=== PATIENT | female | born 1980 | race Caucasian/White ===

== ENCOUNTER → 2017-03-22 | Outpatient (REF) | payer BC ==
[~2017-03-22] MED LIST: AMOX-559 PO; AUG500 PO; BUTA1CAP4 PO; BUTA1CAP51 PO; CALC100C PO; CYC10 PO; DOCU50CA PO; FLUC150T40 PO; HYDR-385 PO; IBU600 PO; LIDO5CRE6 TP; LOR5 PO; MET10 PO; MULT-820 PO; ONDA4TAB PO; ONDA4TAB9 PO; OXYC-857 PO; OXYC-865 PO; PRED20TA6 PO; PREN-67 PO; PRO25 PO; PSEU-287 PO
[2017-03-22 19:11] LABS: PLATELET COUNT, AUTOMATED 234 K/uL (150-450)
== END ==
PROVIDERS: ATTEND Nurse Practitioner Family
DX: R10.9 Unspecified abdominal pain (principal)
CPT/HCPCS: 82040; 82247; 82310; 82374; 82435; 82565; 82947; 84075; 84132; 84155; 84295; 84450; 84460; 84520; 85025

== ENCOUNTER 2018-07-17 16:21 | Emergency (ER) | payer BC ==
[~2018-07-17 16:21] MED LIST changes: -PSEU-287 PO; +PSEU120T69 PO
--- NOTE | 2018-07-17 16:38 | ER Report ---
History and Physical Time Seen By MD: 16:38 Hx. of Stated Complaint: INSECT BITE HPI/ROS CHIEF COMPLAINT: Spider bite HISTORY OF PRESENT ILLNESS: This is a 38-year-old female presents to the emergency department for possible spider bite. Patient states that on Monday, she was different cells, she was in a barn, which did have spiders, they were moving wood she did have an open exposed area to the right knee area of her leggings. If the patient denies the sensation of a "bite". However yesterday she noticed there was a red spot on the right medial knee, progressively getting worse, she did follow up with urgent care this morning, they did prescribe her Keflex, now she states that the erythema has increased in size, she's taken 2 doses of the Keflex. She also states now she has myalgias, she feels nauseous, a burning severe pain to the wound. She also feels hot and flushed, no diaphoresis. She denies chest pain or shortness of breath. REVIEW OF SYSTEMS: Constitutional: As above. Eyes: No discharge. ENT: No sore throat. Cardiovascular: No chest pain, no palpitations. Respiratory: No cough, no shortness of breath. Gastrointestinal: As above. Genitourinary: No hematuria. Musculoskeletal: As above. Skin: No. Neurological: No headache. Allergies: Coded Allergies: ciprofloxacin (Verified Allergy, Severe, SKIN PEELS OFF, 07/17/18) tetracycline (Verified Allergy, Intermediate, HIVES, 07/17/18) Home Meds Active Scripts Ondansetron Hcl (ZOFRAN) 4 Mg Tablet, 4 MG PO Q4-6H PRN for prn, #20 TAB Prov:BOYD BUSBY [facility]- 07/17/18 Fluconazole (DIFLUCAN) 150 Mg Tablet, 150 MG PO QDAY, #2 TAB Take one tab today and may repeat in 48 hours if there is no improvement. Prov:BOYD BUSBY [facility]- 07/17/18 Cephalexin 500 Mg Tab (KEFLEX 500 MG TAB) 500 Mg Tablet, 500 MG PO Q6H, #7 TAB 0 Refills Prov:BOYD BUSBY [facility]- 07/17/18 Reported Medications Cephalexin (KEFLEX) 500 Mg Capsule, 500 MG PO Q8H, #28 CAP 07/17/18 Discontinued Scripts Hydrocodone Bit/Acetaminophen (HYDROCODON-ACETAMINOPHEN 5-325) 1 Each Tablet, 1- 2 EACH PO Q4H for PAIN, #25 TAB 0 Refills Prov:KYLE TORRES MD 12/01/16 Ondansetron 4 Mg Odt (ONDANSETRON 4 MG ODT) 4 Mg Tab.rapdis, 4 MG PO Q8H for Nausea, #16 TAB.CORTEZ 0 Refills Prov:KYLE TORRES MD 12/01/16 Past Medical/Surgical History The patient has a past medical and surgical history of bilateral hydronephrosis, frequent urinary tract infections, left arm fracture, back surgery 3, arm surgery 5. Left arm brown recluse bite. Reviewed Nurses Notes: Yes Hx Smoking: No Smoking Status: Never Smoker Constitutional Vital Sign - Last 24 Hours 07/17/18 07/17/18 07/17/18 16:27 16:30 17:00 Temp 99.2 Pulse 81 Resp 16 B/P (MAP) 121/83 139/79 (99) 113/77 (89) Pulse Ox 94 O2 Delivery Room Air Physical Exam General Appearance: The patient is alert, has no immediate need for airway protection and no signs of toxicity. Eyes: Pupils equal and round no pallor or injection. ENT, Mouth: Mucous membranes are moist. Respiratory: There are no retractions, lungs are clear to auscultation. Cardiovascular: Regular rate and rhythm. Gastrointestinal: Abdomen is soft and non tender, no masses, bowel sounds n ormal. Neurological: Alert and oriented 4. Moving all extremities. Following all commands. No focal neuro deficits. Skin: Erythema and cellulitis in a circular fashion to the right medial knee. Small scab noted which could be from a bite. It is hot to touch. There is no underlying induration, no fluctuance no obvious abscess, no bull's-eye, necrotic or pale tissue. Musculoskeletal: Neck is supple non tender. Extremities are nontender, nonswollen and have full range of motion. DIFFERENTIAL DIAGNOSIS: After history and physical exam differential diagnosis was considered for inflammation, cellulitis, septic arthritis, brown recluse bite, black bite, allergic reaction. Medical Decision Making ED Course/Re-evaluation ED Course Patient was admitted to room. A history and physical obtained. Differential diagnoses were considered. This patient was having nausea, she was given 4 mg ODT Zofran, this did help improve her symptoms. I did speak with toxicology, we did review the case, although they state with a black , the onset is usually delayed, the brown recluse does have a delayed response, although the patient does not have a traditional bull's-eye sam, patient states she has been bit by a brown recluse spider in the past and this is not the same. I do believe the patient has some mild envenomation, she also has a symmetric reaction and was started on Keflex, will give her a shot of Rocephin in the ER, she was also given a shot of Toradol and given by mouth acetaminophen. Patient was feeling better at the time of discharge. I did increase the dose on the Keflex from 3 times a day to 4 times a day, she was also given a prescription for Zofran, and Diflucan. After reexamination of the patient, the erythema did seem to be improved, I did recommend that the patient continue to monitor closely, return to the ER for any other concerns or worsening symptoms. She expressed understanding was agreeable with this plan of care and discharged home. She is also agreeable to toxicology contacting her for follow-up. 07/17/2018 5:15:16 pm was in control, toxicology, they felt that the Keflex thi s appropriate, I did suggest an injection of Rocephin, they thought this would be appropriate. Decision to Disposition Date: July 17, 2018 Decision to Disposition Time: 18:34 Depart Departure Latest Vital Signs Vital Signs Date Time Temp Pulse Resp B/P (MAP) Pulse Ox O2 Delivery O2 Flow Rate FiO2 07/17/18 17:00 113/77 (89) 07/17/18 16:27 99.2 81 16 94 Room Air Impression: Primary Impression: Spider bite Additional Impression: Cellulitis Condition: Improved Disposition: HOME OR SELF-CARE Referrals: HALLE PATRICK DO (PCP) New Scripts Ondansetron Hcl (ZOFRAN) 4 Mg Tablet 4 MG PO Q4-6H PRN for prn, #20 TAB Prov: BOYD BUSBY [employer] 07/17/18 Fluconazole (DIFLUCAN) 150 Mg Tablet 150 MG PO QDAY, #2 TAB Take one tab today and may repeat in 48 hours if there is no improvement. Prov: BOYD BUSBY [place] [employer] 07/17/18 Cephalexin 500 Mg Tab (KEFLEX 500 MG TAB) 500 Mg Tablet 500 MG PO Q6H, #7 TAB 0 Refills Prov: BOYD BUSBY Amado [employer] 07/17/18 Patient Instructions: Black Spider Bite (ED), Brown Recluse Spider Bite (ED), Cellulitis (ED) Additional Instructions: Continue to monitor the wound closely, I would expect the redness to extend beyond the borders that have been drawn on your leg, within 48-72 hours I would expect a slight decrease in the redness as well as the swelling. Get you 1 g of Rocephin, this will help with the infection, continue taking the Keflex however increase from 3 times a day to 4 times a day, the remainder of the prescription has been sent here pharmacy. Take the Diflucan as directed. Get plenty of rest. Drink plenty of water. Take ibuprofen and or Tylenol for pain. Please expect a call from toxicology for follow-up. If you have any other concerns or worsening symptoms please return to the emergency department for reevaluation. Problem Qualifiers Primary Impression: Spider bite Encounter type: initial encounter Injury intent: accidental or unintentional Qualified Codes: T63.301A - Toxic effect of unspecified spider venom, accidental (unintentional), initial encounter Additional Impression: Cellulitis Site of cellulitis: extremity Site of cellulitis of extremity: lower extremity Laterality: right Qualified Codes: L03.115 - Cellulitis of right lower limb BOYD BUSBY [employer]- July 17, 2018 16:38
[2018-07-17] MEDS ORDERED: ONDANSETRON 4 MG ODT TABDP SL ONE (16:45)
[2018-07-17] MEDS ORDERED: CEPH-13 PO (16:52)
[2018-07-17 17:00] VITALS: BP 113/77
[2018-07-17] MEDS ORDERED: KETOROLAC 30 MG/ML VIAL IM ONE (17:20)
[2018-07-17] MEDS ORDERED: cefTRIAXone 1 GM VIAL IM ONE (17:20)
[2018-07-17] MEDS ORDERED: ACETAMINOPHEN 500 MG TAB PO ONE (17:20)
[2018-07-17] MEDS ORDERED: LIDOCAINE 1% MDV 200 MG/20 ML INJ ONE (17:20)
[2018-07-17] MEDS ORDERED: CEPH500T7 PO (18:37)
[2018-07-17] MEDS ORDERED: FLUC150T40 PO (18:37)
[2018-07-17] MEDS ORDERED: ONDA4TAB97 PO (18:37)
[2018-07-18] MEDS ORDERED: CYCL10TA29 PO (16:09)
== END 2018-07-17 18:48 | disposition home or self-care (01) ==
LOC: ER 16:31
DX: T63.301A Toxic effect of unspecified spider venom, accidental (unintentional), initial encounter (principal); L03.115 Cellulitis of right lower limb
CPT/HCPCS: 96372; 99284; J0696; J1885; J2001; S0119

== ENCOUNTER 2018-07-18 14:47 | Emergency (ER) | payer BC ==
[~2018-07-18 14:47] MED LIST changes: +CEPH-13 PO; +CEPH500T7 PO; +ONDA4TAB97 PO
--- NOTE | 2018-07-18 15:01 | ER Report ---
History and Physical Time Seen By : 15:01 HPI/ROS CHIEF COMPLAINT: Spider bite HISTORY OF PRESENT ILLNESS: This is a 38-year-old female who returns to the emergency department for concerns that her spider bite is progressing. The patient was seen and evaluated yesterday for possible spider bite to the right medial knee. The erythema has increased in size in a circular fashion, slight change in the center of the area that was likely the location of the bite. No fevers, she did state that the only time she did feel nauseous was given a st udent touched it otherwise negative. She denies chest pain or shortness of breath. REVIEW OF SYSTEMS: Respiratory: No cough, no dyspnea. Cardiovascular: No chest pain, no palpitations. Gastrointestinal: No vomiting, no abdominal pain. Musculoskeletal: No back pain. Integument or any: As above. Allergies: Coded Allergies: ciprofloxacin (Verified Allergy, Severe, SKIN PEELS OFF, 07/17/18) tetracycline (Verified Allergy, Intermediate, HIVES, 07/17/18) Home Meds Active Scripts Cyclobenzaprine Hcl (CYCLOBENZAPRINE HCL) 10 Mg Tablet, 5-10 MG PO TID PRN for MUSCLE SPASMS, #9 TAB Prov:BOYD BUSBY [facility] 07/18/18 Ondansetron Hcl (ZOFRAN) 4 Mg Tablet, 4 MG PO Q4-6H PRN for prn, #20 TAB Prov:BOYD BUSBY [facility] 07/17/18 Fluconazole (DIFLUCAN) 150 Mg Tablet, 150 MG PO QDAY, #2 TAB Take one tab today and may repeat in 48 hours if there is no improvement. Prov:BOYD BUSBY [facility] 07/17/18 Cephalexin 500 Mg Tab (KEFLEX 500 MG TAB) 500 Mg Tablet, 500 MG PO Q6H, #7 TAB 0 Refills Prov:BOYD BUSBY [facility]- 07/17/18 Reported Medications Cephalexin (KEFLEX) 500 Mg Capsule, 500 MG PO Q8H, #28 CAP 07/17/18 Discontinued Scripts Hydrocodone Bit/Acetaminophen (HYDROCODON-ACETAMINOPHEN 5-325) 1 Each Tablet, 1- 2 EACH PO Q4H for PAIN, #25 TAB 0 Refills Prov:KYLE TORRES MD 12/01/16 Ondansetron 4 Mg Odt (ONDANSETRON 4 MG ODT) 4 Mg Tab.rapdis, 4 MG PO Q8H for Nausea, #16 TAB.CORTEZ 0 Refills Prov:KYLE TORRES MD 12/01/16 Past Medical/Surgical History The patient has a past medical and surgical history of bilateral hydronephrosis, urinary tract infections, left arm fracture, back surgery 3, arm surgery 5, brown recluse bite to left arm. Reviewed Nurses Notes: Yes Hx Smoking: No Smoking Status: Never Smoker Constitutional Vital Sign - Last 24 Hours 07/18/18 07/18/18 07/18/18 07/18/18 14:58 15:00 15:00 15:17 Temp 98.3 Pulse 83 Resp 20 B/P (MAP) 116/80 (92) 125/78 (94) 125/78 Pulse Ox 93 92 O2 Delivery Room Air 07/18/18 07/18/18 07/18/18 15:47 16:17 16:30 Pulse 74 73 B/P (MAP) 119/79 (92) Pulse Ox 95 94 Physical Exam General Appearance: The patient is alert, has no immediate need for airway protection and no current signs of toxicity. Eyes: Pupils equal and round no injection. Respiratory: Chest is non tender, lungs are clear to auscultation. Cardiac: regular rate and rhythm. Gastrointestinal: Abdomen is soft and non tender, no masses, bowel sounds normal. Musculoskeletal: Neck: Neck is supple and non tender. Extremities have full range of motion and are non tender. Skin: Circular cellulitic infection to the right medial knee, erythema extending beyond yesterday's markings, possible small puncture wound to the middle of the infection. No drainage, no fluctuance or apparent abscess. The overall intensity of the redness is improved from yesterday the heat emanating from the wound is less than yesterday as well. Small slight discoloration around the middle of the wound, no necrosis or eschar noted. DIFFERENTIAL DIAGNOSIS: After history and physical exam differential diagnosis was considered for necrotizing fasciitis, cellulitis, envenomation. Medical Decision Making Data Points Result Diagram: 07/18/18 1521 07/18/18 1521 Laboratory Hematology Test 07/18/18 15:21 Red Blood Count 5.38 M/uL (4.17-5.56) Mean Corpuscular Volume 82.0 fL (80.0-96.0) Mean Corpuscular Hemoglobin 27.5 pg (26.0-33.0) Mean Corpuscular Hemoglobin Concent 33.5 g/dL (32.0-36.0) Red Cell Distribution Width 14.5 % (11.5-14.5) Mean Platelet Volume 7.6 fL (7.2-11.1) Neutrophils (%) (Auto) 64.2 % (39.4-72.5) Lymphocytes (%) (Auto) 26.9 % (17.6-49.6) Monocytes (%) (Auto) 5.7 % (4.1-12.4) Eosinophils (%) (Auto) 2.4 % (0.4-6.7) Basophils (%) (Auto) 0.8 % (0.3-1.4) Nucleated RBC Relative Count (auto) 0.3 /100WBC Neutrophils # (Auto) 6.2 K/uL (2.0-7.4) Lymphocytes # (Auto) 2.6 K/uL (1.3-3.6) Monocytes # (Auto) 0.6 K/uL (0.3-1.0) Eosinophils # (Auto) 0.2 K/uL (0.0-0.5) Basophils # (Auto) 0.1 K/uL (0.0-0.1) Nucleated RBC Absolute Count (auto) 0.02 K/uL Sodium Level 137 mmol/L (137-145) Potassium Level 4.1 mmol/L (3.5-5.0) Chloride Level 106 mmol/L (98-107) Carbon Dioxide Level 23 mmol/L (22-31) Blood Urea Nitrogen 12 mg/dl (7-18) Creatinine 0.80 mg/dl (0.52-1.04) Glomerular Filtration Rate Calc > 60.0 Random Glucose 86 mg/dl (75-110) Calcium Level 9.3 mg/dl (8.4-10.2) Total Bilirubin 0.3 mg/dl (0.2-1.3) Aspartate Amino Transf (AST/SGOT) 25 U/L (0-35) Alanine Aminotransferase (ALT/SGPT) 23 U/L (0-56) Alkaline Phosphatase 63 U/L (0-126) Total Protein 7.7 g/dl (6.3-8.2) Albumin 4.5 g/dl (3.5-5.0) Chemistry Test 07/18/18 15:21 White Blood Count 9.6 k/uL (4.5-11.0) Red Blood Count 5.38 M/uL (4.17-5.56) Hemoglobin 14.8 g/dL (12.0-16.0) Hematocrit 44.2 % (34.0-47.0) Mean Corpuscular Volume 82.0 fL (80.0-96.0) Mean Corpuscular Hemoglobin 27.5 pg (26.0-33.0) Mean Corpuscular Hemoglobin Concent 33.5 g/dL (32.0-36.0) Red Cell Distribution Width 14.5 % (11.5-14.5) Platelet Count 341 K/uL (150-450) Mean Platelet Volume 7.6 fL (7.2-11.1) Neutrophils (%) (Auto) 64.2 % (39.4-72.5) Lymphocytes (%) (Auto) 26.9 % (17.6-49.6) Monocytes (%) (Auto) 5.7 % (4.1-12.4) Eosinophils (%) (Auto) 2.4 % (0.4-6.7) Basophils (%) (Auto) 0.8 % (0.3-1.4) Nucleated RBC Relative Count (auto) 0.3 /100WBC Neutrophils # (Auto) 6.2 K/uL (2.0-7.4) Lymphocytes # (Auto) 2.6 K/uL (1.3-3.6) Monocytes # (Auto) 0.6 K/uL (0.3-1.0) Eosinophils # (Auto) 0.2 K/uL (0.0-0.5) Basophils # (Auto) 0.1 K/uL (0.0-0.1) Nucleated RBC Absolute Count (auto) 0.02 K/uL Glomerular Filtration Rate Calc > 60.0 Calcium Level 9.3 mg/dl (8.4-10.2) Total Bilirubin 0.3 mg/dl (0.2-1.3) Aspartate Amino Transf (AST/SGOT) 25 U/L (0-35) Alanine Aminotransferase (ALT/SGPT) 23 U/L (0-56) Alkaline Phosphatase 63 U/L (0-126) Total Protein 7.7 g/dl (6.3-8.2) Albumin 4.5 g/dl (3.5-5.0) ED Course/Re-evaluation ED Course Patient was admitted to room. A history and physical obtained. Differential diagnoses were considered. Reevaluation of the patient's wound, the erythema has increased in size since yesterday however the heat and intensity of the redness has decreased. CBC CMP were unremarkable. I did review the results with the patient, I did reassure the patient that she will likely have some redness and swelling to the area for the next couple of days and will slowly begin to improv e however if anything else were to develop, any other chest pain or shortness of breath, fevers return to ER immediately otherwise follow up with her primary care provider for reevaluation. She expressed understanding and was discharged home. She was also sent home with a prescription for Flexeril. Decision to Disposition Date: July 18, 2018 Decision to Disposition Time: 16:23 Depart Departure Latest Vital Signs Vital Signs Date Time Temp Pulse Resp B/P (MAP) Pulse Ox O2 Delivery O2 Flow Rate FiO2 07/18/18 16:30 119/79 (92) 07/18/18 16:17 73 94 07/18/18 15:00 98.3 20 Room Air Impression: Primary Impression: Cellulitis Condition: Improved Disposition: HOME OR SELF-CARE Referrals: HALLE BONDS DO (PCP) 1 Week New Scripts Cyclobenzaprine Hcl (CYCLOBENZAPRINE HCL) 10 Mg Tablet 5-10 MG PO TID PRN for MUSCLE SPASMS, #9 TAB Prov: BOYD BUSBY [employer] 07/18/18 Patient Instructions: Cellulitis (ED) Additional Instructions: Your blood work looks good, no indication of systemic infection. I would still anticipate the redness and discomfort to continue for at least another several days. You can alternate 800mg Ibuprofen every 8 hours with 500-1000mg of Tylenol every 8 hours. Continue taking your antibiotics as prescribed, (4 times a day). Take the flexeril for muscular pain, this may cause drowsiness. Drink plenty of water. Get plenty of rest. Consider taking some time off work if the pain continues. Follow up with Dr. Bonds within one week for reevaluation. Return to the ED for any other concerns or worsening symptoms. Problem Qualifiers Primary Impression: Cellulitis Site of cellulitis: extremity Site of cellulitis of extremity: lower extremity Laterality: right Qualified Codes: L03.115 - Cellulitis of right lower limb BOYD BUSBY [employer] July 18, 2018 15:01
[2018-07-18 15:29] LABS: PLATELET COUNT, AUTOMATED 341 K/uL (150-450)
[2018-07-18] MEDS ORDERED: CYCL10TA29 PO (16:09)
[2018-07-18 16:30] VITALS: BP 119/79
== END 2018-07-18 16:37 | disposition home or self-care (01) ==
LOC: ER 15:11
DX: L03.115 Cellulitis of right lower limb (principal)
CPT/HCPCS: 82040; 82247; 82310; 82374; 82435; 82565; 82947; 84075; 84132; 84155; 84295; 84450; 84460; 84520; 85025; 99282